=== PATIENT | male | born 1995 | race Caucasian/White ===

== ENCOUNTER 2024-12-05 08:45 | Day surgery (SDC) | payer BC ==
[2024-12-05] MEDS: Ringers Lactate 1,000 ML IV ONE (09:25)
[2024-12-05 10:02] LABS: Anion Gap 8.1 mEq/L (5.0-15.0); BUN Blood Urea Nitrogen 20.0 mg/dL (7-18); Glucose Level 90.0 mg/dL (74-106); Potassium 4.1 mEq/L (3.5-5.1)
[2024-12-05 10:03] LABS: Absolute Lymphocytes (CBC) 1.3 K/uL (0.7-4.9); Hematocrit 43.4 % (39.6-49.0); Hemoglobin 14.7 g/dL (13.6-17.9); MCH 30.2 pg (27.0-35.0); MCHC 33.9 g/dL (32.0-36.0); MCV 89.1 fL (80-100); MPV 9.3 fL (7.6-11.3); Nucleated RBC Absolute Count 0.0 (0-0); Nucleated Red Blood Cells % 0.1 % (0-0); RBC Red Blood Cell Count 4.87 M/uL (4.33-5.43); White Blood Count 4.40 thou/uL (4.3-10.9)
--- NOTE | 2024-12-05 10:14 | RAD REPORT ---
EXAMINATION: TWO VIEW CHEST XR CLINICAL INDICATION: Male, 29 years old. Hypertension. PREOP SDS RM A TECHNIQUE: 2 view radiographs of the chest were performed. COMPARISON: No prior exam. FINDINGS: The lungs are well inflated and clear. 1 cm calcified granuloma in the left midlung. No pneumothorax or sizable effusion. The heart is normal in size. Mediastinal contours are unremarkable. IMPRESSION: No acute or significant abnormalities.
[2024-12-05] MEDS ORDERED: MIDAZOLAM HCL 2 MG/2 ML INJ ONE (10:49)
[2024-12-05] MEDS ORDERED: FENTANYL CITR 100 MCG/2 ML ONE (10:49)
[2024-12-05] MEDS ORDERED: ONDANSETRON 4 MG/2 ML VIAL ONE (10:49)
[2024-12-05] MEDS ORDERED: LIDOCAINE 2% MPF 5 ML VIAL ONE (10:49)
[2024-12-05] MEDS ORDERED: EPHEDRINE SULF 50 MG/ML VIAL ONE (11:59)
[2024-12-05] MEDS: CIPROFLOXACIN 400mg IV 400 MG/200 ML BAG IV ONE (12:01)
[2024-12-05] MEDS: BUPIVACAINE 0.5% PF 10 ML VIAL ONE (12:12)
[2024-12-05] MEDS ORDERED: GLYCOPYRROLATE 0.2 MG/ML SYR ONE ×2 (12:18→12:19)
[2024-12-05] MEDS ORDERED: KETOROLAC 30 MG/ML INJ ONE (12:27)
--- NOTE | 2024-12-05 12:37 | P.BOP ---
Preoperative diagnosis: infected upper back subQ mass Postoperative diagnosis: same Primary procedure: Excisional biopsy of infected upper back subQ mass 4.5 x 3.0 x 1.0 cm Estimated blood loss: <10cc Specimen: mass, culture Findings: mass Anesthesia: General Complications: None Transferred to: Recovery Room Condition: Good
[2024-12-05 12:40] VITALS: O2SAT 100
[2024-12-05] MEDS ORDERED: MUPIROCIN 2% OINT 22GM TUBE TOP ONE (12:46)
[2024-12-05 13:55] VITALS: BP 117/62; TEMP 97.6
--- NOTE | 2024-12-06 | DS ---
Date of Discharge: 12/05/2024 Diagnosis: Upper back infected subcutaneous mass. Procedure: Excisional biopsy of upper back subcutaneous mass. Condition: Stable. Disposition: Home. Activity: As tolerated. No heavy lifting. Discharge Instructions: Follow up in my office in 1 week. Call for appointment at [phone]. Keep a kasia dry for 48 hours, then clean with soap and water. Apply Bactroban and Band-Aid. MELISSA/SURESH Voice ID: [id number] Report ID: [id number]
--- NOTE | 2024-12-06 | OP ---
Date of Procedure: 12/05/2024 Surgeon: Abelardo Quispe MD Preoperative Diagnosis: Infected left upper back subcutaneous mass. Postoperative Diagnosis: Infected left upper back subcutaneous mass. Procedure: Excisional biopsy of infected upper back subcutaneous mass; it is about 4.5 x 3.0 x 1 cm. Anesthesia: General plus local. Complications: None. Estimated Blood Loss: Less than 10 cc. Indications: This is the case of a 29-year-old patient who comes to us with infected mass, started o n p.o. antibiotics. Erythema improved, but the area is char filter tank tender, so at present he wants that exc ised. The benefits, alternatives, and risks of excision were fully explained, which include, but not limited to infection, bleeding, damage to adjacent structures, anesthesia complication, recurrence, SD, and even . He also understands this may not relieve symptoms. He might need more than one surgical intervention. He also was explained he may need wound care in the form of wet-to-dry. He s igned a consent. Description Of Procedure: The area of concern was marked by me and the patient in the holding room. The patient was brought to the operating room, placed in supine position. Anesthesia was done witho ut complication. Upper back was prepped and draped in the usual sterile fashion after placing the pa tient in lateral decubitus position. After that, we made a wedge incision on the skin, injected loca l anesthetic before that and then did a wedge incision. This went all the way down to fascia of the muscle, does not penetrate the muscle. The mass was completely excised. Area was irrigated. I did not see any pus, so we proceeded then to irrigate the area profusely with antiseptics and then after that, since he wants this closed, we will go and to try to close that with 3-0 chromic subcutaneous a nd then the skin with a 2-0 nylon. Hemostasis was obtained before closure. Also, profuse irrigation done before closure. The patient tolerated the procedure well. The patient was sent to recovery in stable condition. Sponge count and instrument counts were correct. HM/MODL Voice ID: [id number] Report ID: [id number]
== END 2024-12-05 13:48 | disposition home or self-care (01) ==
LOC: OR 08:45
PROVIDERS: ATTEND Surgery
PROC: 0JB70ZZ Excision of Back Subcutaneous Tissue and Fascia, Open Approach (ICD-10-PCS; principal; 2024-12-05 11:00)
DX: L72.0 Epidermal cyst (principal); L08.9 Local infection of the skin and subcutaneous tissue, unspecified
CPT/HCPCS: 87070; 85025; 80048; 36415; 87205; 88304; 87075; 71046; 11406; J2704; J2003; J2250; J3010; J2405; J0744; J7120